=== PATIENT | female | born 1985 | race Caucasian/White ===

== ENCOUNTER 2016-10-31 19:56 | Emergency (ER) | payer SELFPAY ==
[2016-10-31 20:00] VITALS: BP 121/83; PULSE 78; RESP 16; TEMP 98.4; O2SAT 99
[2016-10-31] MEDS ORDERED: HYDR-3533 PO (20:29)
[2016-10-31] MEDS ORDERED: NAPR500 PO (20:29)
[2016-10-31] MEDS ORDERED: CLIN1CAP6 PO (20:29)
--- NOTE | 2016-10-31 20:29 | PD ---
HPI Chief Complaint: Oral / Dental Pain or Problem Time Seen by Provider: 20:18 Travel History International Travel<30 days: No Contact w/Intl Traveler<30days: No Traveled to known affect area: No History of Present Illness HPI This is a 30-year-old woman who presents to the emergency department complaining of right sided facial pain and tenderness. She is a known bad tooth on her right maxilla. She's been having worsening pain and swelling starting just today. She's never had some visible swelling on her face prior to this. She fractured that some time ago. No fevers or chills. Pain is severe. She otherwise has been feeling generally well and healthy. History Past Medical History Medical History: Denies Significant Hx Tetanus Vaccination: > 5 Years Influenza Vaccination: No Menopausal: No : 2 Para: 2 Social History Alcohol Use: No Tobacco Use: Yes (08/27 PPD) Allergies-Medications (Allergen,Severity, Reaction): Coded Allergies: Codeine (Verified Allergy, Severe, hives, 10/31/16) Penicillin (Verified Allergy, Severe, RASH, 10/31/16) Reported Meds & Prescriptions Reported Meds & Active Scripts Active No Active Prescriptions or Reported Medications Review of Systems Except as stated in HPI: all other systems reviewed are Neg Physical Exam Narrative Gen.: Well-appearing 30-year-old woman, no acute distress HEENT: Visible swelling or fullness of the right nasal labial fold. Severe tenderness and tenderness percussion the teeth. She has a fractured bicuspid on the right, tooth #4, no purulence. Data Data Last Documented VS Vital Signs Date Time Temp Pulse Resp B/P Pulse Ox O2 Delivery O2 Flow Rate FiO2 10/31/16 20:00 98.4 78 16 121/83 99 MDM Medical Decision Making Medical Screen Exam Complete: Yes Emergency Medical Condition: Yes Differential Diagnosis Dental pain, infection, abscess, other Narrative Course Medical decision making INITIAL 30-year-old woman presents emergent arm for right sided facial swelling related to dental infection. She's had fullness in the sinuses and onto the sinus infection by think this is probably all odontogenic. Recommend NSAIDs, antibiotics, pain medicine. Diagnosis Primary Impression: Pain, dental Additional Instructions: Take clindamycin as prescribed. Take Naprosyn as needed for pain. Take Lortab in addition to Naprosyn as needed for severe pain. Use caution as it can cause drowsiness and constipation. Do not take this medication and drive. Follow-up with a dentist for further evaluation. Return to the emergency department for any worsening pain, swelling, or any other new or worsening symptoms. Med/Other Pt SpecificInfo: Prescription(s) given Scripts Hydrocodone-Acetaminophen (Lortab)5-325 Mg Tab1-2 Tab PO Q6H PRN (PAIN) #12 TAB Prov:Jarrod Cruz MD 10/31/16 Naproxen (Naprosyn)500 Mg [id number] Mg PO BID PRN (PAIN SCALE 1 TO 10) #20 TAB Prov:Jarrod Cruz MD 10/31/16 Clindamycin 300 Mg [id number] Mg PO Q6H 7 Days Prov:Jarrod Cruz MD 10/31/16 Disposition: 01 DISCHARGE HOME Condition: Stable Jarrod Cruz MD Oct 31, 2016 20:29
[2016-10-31] MEDS ORDERED: KETOROLAC TROMETHAMINE 60 MG/2 ML (IM) VIAL IM ONE (20:30)
[2016-10-31] MEDS ORDERED: DEXAMETHASONE SOD PHOS 4 MG/ML VIAL IM ONE (20:30)
[2016-10-31] MEDS ORDERED: CLINDAMYCIN 150 MG CAP PO ONE (20:30)
== END 2016-10-31 21:05 | disposition home or self-care (01) ==
LOC: PHEFT 19:56
DX: K08.89 Other specified disorders of teeth and supporting structures (principal); K04.7 Periapical abscess without sinus
CPT/HCPCS: 96372; 99282; J1100; J1885

== ENCOUNTER 2016-11-04 12:46 | Emergency (ER) | payer SELFPAY ==
[~2016-11-04] VITALS: Ht 152.4 cm; Wt 67.0 kg
[~2016-11-04 12:46] MED LIST: CLIN1CAP6 PO; HYDR-3533 PO; NAPR500 PO
[2016-11-04 12:55] VITALS: BP 129/79; PULSE 62; RESP 16; TEMP 98.2; O2SAT 100
--- NOTE | 2016-11-04 13:22 | PD ---
HPI . facial swelling Chief Complaint: Oral / Dental Pain or Problem Time Seen by Provider: 13:22 Travel History International Travel<30 days: No Contact w/Intl Traveler<30days: No Traveled to known affect area: No History of Present Illness HPI 30 yr old female who was previously seen on 10/31/16 for dental pain and told to f/u with dentist here with c/o facial swelling and return of pain. She is taking medicines as prescribed and tells me she cannot get into the dental office until Thursday. She is c/o of facial swelling and wants something else for pain. PFSH Past Medical History ADD: Yes Anxiety: Yes Depression: Yes (PP) Cancer: No Cardiovascular Problems: No Diabetes: No Diminished Hearing: No Gastrointestinal Disorders: Yes (Gastritis ) Glaucoma: No Hepatitis: No Hiatal Hernia: Yes Hypertension: No Reproductive: Yes (Heavy periods ) Respiratory: No Immunizations Current: Yes Thyroid Disease: Yes (Hypo-) Tetanus Vaccination: > 5 Years Influenza Vaccination: No ?: Not LMP: 10/20/16 Menopausal: No : 2 Para: 2 Miscarriage: 0 : 0 Ovarian Cysts: Yes (Ovarian and uterine cysts ) Tubal Ligation: Yes Past Surgical History Abdominal Surgery: Yes (Laparoscopy ) Section: Yes (X's 2 ) Cholecystectomy: Yes Gynecologic Surgery: Yes (Uterine scar tissue removal ) Other Surgery: Yes Social History Alcohol Use: Yes (Rarely) Tobacco Use: Yes (3-4 cigarettes/day) Substance Use: No Allergies-Medications (Allergen,Severity, Reaction): Coded Allergies: Codeine (Verified Allergy, Severe, Hives, 11/04/16) Penicillin (Verified Allergy, Severe, Rash, 11/04/16) Reported Meds & Prescriptions Reported Meds & Active Scripts Active Lortab (Hydrocodone-Acetaminophen) 5-325 Mg Tab 1-2 Tab PO Q6H PRN Naprosyn (Naproxen) 500 Mg Tab 500 Mg PO BID PRN Clindamycin (Clindamycin HCl) 300 Mg Cap 300 Mg PO Q6H 7 Days Review of Systems General / Constitutional: No: Fever Eyes: No: Visual changes HENT: Positive: Other (facial pain), No: Headaches Cardiovascular: No: Chest Pain or Discomfort Respiratory: No: Shortness of Breath Gastrointestinal: No: Abdominal Pain Genitourinary: No: Dysuria Musculoskeletal: No: Pain Skin: No Rash Neurologic: No: Weakness Psychiatric: No: Depression Endocrine: No: Polydipsia Hematologic/Lymphatic: No: Easy Bruising Physical Exam Narrative GENERAL: AAO x 3, no acute distress, Well-nourished, well-developed patient. SKIN: Warm and dry. No visible rashes or bruising. HEAD: Normocephalic and atraumatic. EYES: No scleral icterus. No injection or drainage. ENT: No nasal drainage noted. Mucous membranes pink. Airway patent. No definitive oral abscess. No erythema and no edema. There is a bad tooth on the upper jaw. Very minimal swelling near the cheek. NECK: Supple, trachea midline. No JVD. No lymphadenopathy CARDIOVASCULAR: Regular rate and rhythm without murmurs, gallops, or rubs. RESPIRATORY: Breath sounds equal bilaterally. No accessory muscle use. No rhonchi or rales. GASTROINTESTINAL: Abdomen soft, non-tender, nondistended. EXTREMITIES: No cyanosis or edema. BACK: Nontender without obvious deformity. No CVA tenderness. PSYCH: AAO x 3, normal affect. Data Data Last Documented VS Vital Signs Date Time Temp Pulse Resp B/P Pulse Ox O2 Delivery O2 Flow Rate FiO2 11/04/16 12:55 98.2 62 16 129/79 100 Room Air Orders Prednisone (Deltasone) (11/04/16 13:30) MDM Medical Decision Making Medical Screen Exam Complete: Yes Emergency Medical Condition: Yes Medical Record Reviewed: Yes Differential Diagnosis recurrent dental pain, dental caries, less likely oral abscess Narrative Course 30 yr old female who was previously seen on 10/31/16 for dental pain and told to f/u with dentist here with c/o facial swelling and return of pain. She is taking medicines as prescribed and tells me she cannot get into the dental office until Thursday. She is c/o of facial swelling and wants something else for pain. Patient seen and examined. She does not have any oral abscess or worsening infection. Her gumline is actually clear and free of any fluid collect, erythema or drainage. She has very minimal if any edema near her right cheek. I had a discussion with her regarding this and told her that she will need to see dentist for definitive treatment which would be removal of this tooth. She became upset and asked why I can't give her something else for pain even a steroid injection. She says she was given a steroid injection at her last visit and it helped significantly. I explained that there was not any significant findings on exam and that ultimately she needs to see a dentist. She started complaining that she has a hard life and needs something now. I gave oral prednisone. She was content. I advised her to try to move her dental visit up to an earlier date if possible Continue current meds. No changes required. Diagnosis Primary Impression: Pain, dental Patient Instructions: General Instructions Additional Instructions: Please seek dental assistance as soon as possible. This tooth needs to be removed. Continue taking the medicines we prescribed. Med/Other Pt SpecificInfo: No Change to Meds Disposition: 01 DISCHARGE HOME Condition: Stable Aranza Reilly Nov 04, 2016 13:22
[2016-11-04] MEDS ORDERED: predniSONE 50 MG TAB PO ONE (13:30)
== END 2016-11-04 13:50 | disposition home or self-care (01) ==
LOC: PHEFT 12:46
DX: K08.89 Other specified disorders of teeth and supporting structures (principal); E07.9 Disorder of thyroid, unspecified; F17.210 Nicotine dependence, cigarettes, uncomplicated
CPT/HCPCS: 99282; J7512

== ENCOUNTER 2017-03-10 10:20 | Observation (INO) | payer SELFPAY ==
[~2017-03-10] VITALS: Ht 175.3 cm; Wt 68.8 kg
[2017-03-10 10:26] VITALS: BP 118/79; PULSE 59; RESP 16; TEMP 98.3; O2SAT 100
[2017-03-10] MEDS ORDERED: KETOROLAC TROMETHAMINE 30 MG/ML (IVP) VIAL IV PUSH ONE (11:00)
[2017-03-10] MEDS ORDERED: SODIUM CHLOR 0.9% 1000 ML INJ 1,000 ML IV ONE (11:00)
[2017-03-10] MEDS ORDERED: ONDANSETRON HCL 4 MG/2 ML VIAL IV PUSH ONE (11:00)
[2017-03-10] MEDS ORDERED: MORPHINE SULFATE 8 MG/ML INJ IV PUSH ONE ×3 (11:00→14:00)
--- NOTE | 2017-03-10 11:05 | PD ---
HPI . 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 Onset was midnight. LMP was February 25 for 7 days but she reports that this bleeding is different from her usual menstrual cycles. Reports that the bleeding is bright red and "thin". Reports mid-section soreness as well as right lower quadrant pain that she describes as throbbing. She has had similar episodes in the past associated with the cysts but without vaginal bleeding. Had some mild relief with tylenol. No known aggravating factors. Rates the pain as an 8/10. She denies any fever, chills, vaginal discharge, dysuria, constipation or diarrhea. Reports some nausea this morning, no vomiting. No new sexual partners. Denies any intercourse prior to onset or any trauma. She had a tubal ligation in 2012. PFSH Past Medical History ADD: Yes Anxiety: Yes Depression: Yes (PP) Cancer: No Cardiovascular Problems: No Diabetes: No Diminished Hearing: No Gastrointestinal Disorders: Yes (Gastritis ) Glaucoma: No Hepatitis: No Hiatal Hernia: Yes Hypertension: No Reproductive: Yes (Heavy periods ) Respiratory: No Immunizations Current: Yes Thyroid Disease: Yes (Hypo-) Tetanus Vaccination: Unknown Influenza Vaccination: No ?: Not LMP: 02/25/17 Menopausal: No : 2 Para: 2 Miscarriage: 0 : 0 Ovarian Cysts: Yes (Ovarian and uterine cysts ) Tubal Ligation: Yes Past Surgical History Abdominal Surgery: Yes (Laparoscopy ) Section: Yes (X's 2 ) Cholecystectomy: Yes Gynecologic Surgery: Yes (Uterine scar tissue removal ) Other Surgery: Yes Social History Alcohol Use: Yes (Rarely) Tobacco Use: No Substance Use: No Allergies-Medications (Allergen,Severity, Reaction): Coded Allergies: Codeine (Verified Allergy, Severe, Hives, 03/10/17) Penicillin (Verified Allergy, Severe, Rash, 03/10/17) Uncoded Allergies: " all cillins" (Allergy, Mild, hives, 03/10/17) Reported Meds & Prescriptions Reported Meds & Active Scripts Active No Active Prescriptions or Reported Medications Review of Systems Except as stated in HPI: all other systems reviewed are Neg General / Constitutional: No: Fever, Chills Respiratory: No: Shortness of Breath, Wheezing Gastrointestinal: Positive: Nausea, Abdominal Pain Genitourinary: Positive: Vaginal Bleeding, No: Frequency, Dysuria, Discharge Physical Exam Narrative GENERAL: Awake and alert female appearing stated age in no acute distress. SKIN: Focused skin assessment warm/dry. HEAD: Atraumatic. Normocephalic. EYES: Pupils equal and round. No scleral icterus. No injection or drainage. Extraocular eye movements intact. ENT: No nasal bleeding or discharge. Mucous membranes pink and moist. NECK: Trachea midline. Neck supple. CARDIOVASCULAR: Regular rate and rhythm. No murmur appreciated. RESPIRATORY: No accessory muscle use. Clear to auscultation. Breath sounds equal bilaterally. GASTROINTESTINAL: Abdomen soft, non-tender, nondistended. Tenderness elicited in the right lower quadrant. No rebound or guarding. MUSCULOSKELETAL: No obvious deformities. No clubbing. No cyanosis. No edema. NEUROLOGICAL: Awake and alert. No obvious cranial nerve deficits. Motor grossly within normal limits. Normal speech. PSYCHIATRIC: Appropriate mood and affect; insight and judgment normal. Data Data Last Documented VS Vital Signs Date Time Temp Pulse Resp B/P Pulse Ox O2 Delivery O2 Flow Rate FiO2 03/10/17 13:48 59 16 122/66 100 Room Air 03/10/17 10:26 98.3 Orders Complete Blood Count With Diff (03/10/17 10:51) Ed Urine Pregnancytest Poc (03/10/17 10:51) Morphine Inj (Morphine Inj) (03/10/17 11:00) Ketorolac Inj (Toradol Inj) (03/10/17 11:00) Ondansetron Inj (Zofran Inj) (03/10/17 11:00) Sodium Chlor 0.9% 1000 Ml Inj (Ns 1000 M (03/10/17 11:00) Beta Hcg (Quant/Titer) (03/10/17 11:09) Type And Screen (03/10/17 11:09) Urinalysis - C+S If Indicated (03/10/17 11:09) Basic Metabolic Panel (Bmp) (03/10/17 11:09) Us Pelvis (Ques Pr/Ect)W Trans (03/10/17 ) Morphine Inj (Morphine Inj) (03/10/17 12:15) Morphine Inj (Morphine Inj) (03/10/17 14:00) Admit Order (Ed Use Only) (03/10/17 14:37) Red Blood Cells (Rbc) (03/10/17 14:42) Bupivacaine-Epi Pf 0.25% Inj (Marcaine-E (03/10/17 15:07) Place In Observation (03/10/17 ) Scd / Nadeem / Foot Pump REECE.QSHIFT (03/10/17 15:08) Clindamycin Inj (Cleocin Inj) (03/10/17 15:15) Labs Laboratory Tests Test 03/10/17 03/10/17 11:00 11:24 White Blood Count 3.3 TH/MM3 Red Blood Count 4.51 MIL/MM3 Hemoglobin 12.6 GM/DL Hematocrit 37.2 % Mean Corpuscular Volume 82.6 FL Mean Corpuscular Hemoglobin 27.8 PG Mean Corpuscular Hemoglobin 33.7 % Concent Red Cell Distribution Width 13.9 % Platelet Count 237 TH/MM3 Mean Platelet Volume 8.6 FL Neutrophils (%) (Auto) 42.5 % Lymphocytes (%) (Auto) 37.0 % Monocytes (%) (Auto) 16.5 % Eosinophils (%) (Auto) 2.2 % Basophils (%) (Auto) 1.8 % Neutrophils # (Auto) 1.4 TH/MM3 Lymphocytes # (Auto) 1.2 TH/MM3 Monocytes # (Auto) 0.5 TH/MM3 Eosinophils # (Auto) 0.1 TH/MM3 Basophils # (Auto) 0.1 TH/MM3 CBC Comment DIFF FINAL Differential Comment Urine Collection Type CLEAN CATCH Urine Color YELLOW Urine Turbidity SLIGHT Urine pH 5.5 Urine Specific [place] 1.026 Urine Protein TRACE mg/dL Urine Glucose (UA) NEG mg/dL Urine Ketones NEG mg/dL Urine Occult Blood LARGE Urine Nitrite NEG Urine Bilirubin NEG Urine Leukocyte Esterase NEG Urine RBC 100-200 /hpf Urine WBC 6-8 /hpf Urine Squamous Epithelial 6-8 /hpf Cells Microscopic Urinalysis Comment CULT NOT INDICATED Urine Collection Time 11:00 Sodium Level 143 MEQ/L Potassium Level 3.8 MEQ/L Chloride Level 109 MEQ/L Carbon Dioxide Level 27.0 MEQ/L Anion Gap 7 MEQ/L Blood Urea Nitrogen 9 MG/DL Creatinine 0.65 MG/DL Estimat Glomerular Filtration 106 ML/MIN Rate Random Glucose 87 MG/DL Calcium Level 8.3 MG/DL Human Chorionic Gonadotropin, 95 MIU/ML Quant Blood Type A POSITIVE Antibody Screen NEGATIVE MDM Medical Decision Making Medical Screen Exam Complete: Yes Emergency Medical Condition: Yes Medical Record Reviewed: Yes Interpretation(s) Laboratory Tests Test 03/10/17 03/10/17 11:00 11:24 White Blood Count 3.3 TH/MM3 Red Blood Count 4.51 MIL/MM3 Hemoglobin 12.6 GM/DL Hematocrit 37.2 % Mean Corpuscular Volume 82.6 FL Mean Corpuscular Hemoglobin 27.8 PG Mean Corpuscular Hemoglobin 33.7 % Concent Red Cell Distribution Width 13.9 % Platelet Count 237 TH/MM3 Mean Platelet Volume 8.6 FL Neutrophils (%) (Auto) 42.5 % Lymphocytes (%) (Auto) 37.0 % Monocytes (%) (Auto) 16.5 % Eosinophils (%) (Auto) 2.2 % Basophils (%) (Auto) 1.8 % Neutrophils # (Auto) 1.4 TH/MM3 Lymphocytes # (Auto) 1.2 TH/MM3 Monocytes # (Auto) 0.5 TH/MM3 Eosinophils # (Auto) 0.1 TH/MM3 Basophils # (Auto) 0.1 TH/MM3 CBC Comment DIFF FINAL Differential Comment Urine Collection Type CLEAN CATCH Urine Color YELLOW Urine Turbidity SLIGHT Urine pH 5.5 Urine Specific [place] 1.026 Urine Protein TRACE mg/dL Urine Glucose (UA) NEG mg/dL Urine Ketones NEG mg/dL Urine Occult Blood LARGE Urine Nitrite NEG Urine Bilirubin NEG Urine Leukocyte Esterase NEG Urine RBC 100-200 /hpf Urine WBC 6-8 /hpf Urine Squamous Epithelial 6-8 /hpf Cells Microscopic Urinalysis Comment CULT NOT INDICATED Urine Collection Time 11:00 Sodium Level 143 MEQ/L Potassium Level 3.8 MEQ/L Chloride Level 109 MEQ/L Carbon Dioxide Level 27.0 MEQ/L Anion Gap 7 MEQ/L Blood Urea Nitrogen 9 MG/DL Creatinine 0.65 MG/DL Estimat Glomerular Filtration 106 ML/MIN Rate Random Glucose 87 MG/DL Calcium Level 8.3 MG/DL Human Chorionic Gonadotropin, 95 MIU/ML Quant Blood Type A POSITIVE Antibody Screen NEGATIVE Ultrasound pelvis reveals no intrauterine seen. Close interval follow -up as an ectopic cannot be excluded. Small pelvic free fluid. Differential Diagnosis Differential diagnosis includes ectopic , ovarian cyst, hemorrhagic ovarian cyst, PID, cervicitis, dysfunctional uterine bleeding, dysmenorrhea, atypical appendicitis, pyelonephritis, hydronephrosis, nephrolithiasis. Narrative Course IV was established, labs are drawn and sent, and the patient was placed on cardiac telemetry monitoring and continuous pulse oximetry monitoring. Bedside UA test was obtained, was positive. Therefore, formal quantitative beta hCG was ordered and formal ultrasound was ordered to evaluate for ectopic . The patient was administered morphine, Zofran, and IV fluids. A pelvic examination was performed in the presence of a female nurse. Beta hCG was 95. Pelvic examination reveals significant right adnexal tenderness. Ultrasound reveals no IUP, small pelvic free fluid, recommends close interval follow-up. The patient required 3 different doses of morphine for pain control , with history of tubal ligation I suspect ectopic . Therefore, Dr. Geiger, the on-call insurance special agent was paged at 1:52 PM. I discussed the patient with Dr. Geiger, after discussion was agreed the patient would go to the operating room for diagnostic laparoscopy to evaluate for possible ectopic . Physician Communication Physician Communication I discussed the patient with Dr. Geiger who will take the patient to the operating room for diagnostic laparoscopy. Diagnosis Primary Impression: Vaginal bleeding Additional Impression: Ectopic Qualified Code: O00.90 - Ectopic , unspecified location, unspecified whether intrauterine present Scripts No Active Prescriptions or Reported Meds Condition: Deondre Melendez MD Mar 10, 2017 11:05
[2017-03-10 11:34] LABS: BLOOD, URINE LARGE (NEG); GLUCOSE,URINE NEG (NEG); KETONE, URINE NEG (NEG); NITRITE,URINE NEG (NEG); PH, URINE 5.5 (5.0-8.5)
[2017-03-10 11:36] LABS: AUTOMATED NEUTROPHIL # 1.4 TH/MM3 (1.8-7.7); BASOPHIL # 0.1 TH/MM3 (0-0.2); BASOPHIL % 1.8 % (0.0-2.0); EOSINOPHIL # 0.1 TH/MM3 (0-0.4); EOSINOPHIL % 2.2 % (0.0-4.0); HEMATOCRIT 37.2 % (35.0-46.0); HEMO FLAGS DIFF FINAL; LYMPHOCYTE # 1.2 TH/MM3 (1.0-4.8); MEAN CELL VOLUME 82.6 FL (80.0-100.0); MEAN CORPUSCULAR HEMOGLOBIN 27.8 PG (27.0-34.0); MEAN CORPUSCULAR HGB CONC 33.7 % (32.0-36.0); MONO % 16.5 % (0.0-8.0); NEUT % 42.5 % (16.0-70.0); PLATELET COUNT 237 TH/MM3 (150-450); RED BLOOD COUNT 4.51 MIL/MM3 (4.00-5.30); RED CELL DISTRIBUTION WIDTH 13.9 % (11.6-17.2); WHITE BLOOD COUNT 3.3 TH/MM3 (4.0-11.0)
[2017-03-10 11:43] LABS: METHOD OF COLLECTION CLEAN CATCH; URINE COLOR YELLOW (YELLW/STRAW)
[2017-03-10 11:44] LABS: POTASSIUM 3.8 MEQ/L (3.5-5.1)
[2017-03-10 11:45] LABS: COMMENT (UR) CULT NOT INDICATED; CULTURE IF INDICATED CULT NOT INDICATED; RBC, URINE 100-200 /hpf (0-3)
[2017-03-10] MEDS ORDERED: PROPOFOL 200 MG/20 ML AMP IV ONE (12:00)
[2017-03-10] MEDS ORDERED: NEOSTIGMINE 3 MG/3 ML SYR IV ONE (12:00)
--- NOTE | 2017-03-10 13:46 | RADRPT ---
EXAM DATE/TIME: 03/10/2017 12:29 [facility] COMPARISON: No previous studies available for comparison. INDICATIONS : Pelvic pain and bleeding. LAB(S): Beta-hC MEDICAL HISTORY : Hypothyroidism. Ovarian cysts. Gastritis. SURGICAL HISTORY : Cholecystectomy. Tubal ligation. section. ENCOUNTER: ACUITY: 1 day PAIN SCORE: 6/10 LOCATION: Bilateral pelvis MEASUREMENTS: UTERUS: 8.6 x 6.2 x 4.1 cm ENDOMETRIAL STRIPE: 4 mm RIGHT OVARY: 3.2 x 3.4 x 2.2 cm LEFT OVARY: 2.7 x 1.9 x 2.3 cm FREE FLUID: Yes CROWN RUMP LENGTH: not seen = WKS DAYS FHR: not seen BPM FINDINGS: UTERUS: The myometrium has homogeneous echotexture without mass. No gestational sac. Ectopic not seen. RIGHT OVARY: Ovary contains no mass or significant cystic lesion. LEFT OVARY: Ovary contains no mass or significant cystic lesion. MISCELLANEOUS: Small amount of free fluid. CONCLUSION: 1. No intrauterine seen. 2. Close interval followup as ectopic can not be excluded. 3. Small pelvic free fluid. Clark Prince MD on March 10, 2017 at 13:43 Board Certified Radiologist. This report was verified electronically.
[2017-03-10 13:48] VITALS: BP 122/66; PULSE 59; RESP 16; O2SAT 100
[2017-03-10] MEDS ORDERED: BUPIVACAINE/EPINEPHRINE 0.25% PF 30 ML VIAL ONE (15:07)
[2017-03-10] MEDS ORDERED: fentaNYL CITRATE 250 MCG/5 ML AMP ONE (15:11)
[2017-03-10] MEDS ORDERED: ONDANSETRON HCL 4 MG/2 ML VIAL IV PUSH PRN (15:15)
[2017-03-10] MEDS ORDERED: oxyCODONE/ACETAMINOPHEN 10 MG/325 MG TAB PO PRN (15:15)
[2017-03-10] MEDS ORDERED: oxyCODONE/ACETAMINOPHEN 5 MG/325 MG TAB PO PRN (15:15)
[2017-03-10] MEDS ORDERED: CLINDAMYCIN INJ 600 MG in SODIUM CHLORIDE 0.9% INJ 100 ML IV SCH (15:15)
[2017-03-10] MEDS ORDERED: PERC5TAB12 PO (15:16)
[2017-03-10] MEDS ORDERED: OXYC1TAB63 PO (15:16)
[2017-03-10] MEDS ORDERED: CLINDAMYCIN PHOS 600 MG/4 ML VIAL ONE (15:21)
--- NOTE | 2017-03-10 15:34 | HHI.HP ---
HPI Chief Complaint pt c/o RLQ pain that started at midnight and has worsened over the course of the day today and vaginal bleeding. Date Seen: Mar 10, 2017 Time Seen: 03:20 Travel History International Travel<30 Days: No Contact w/Intl Traveler<30Days: No Known Affected Area: No History of Present Illness HPI 31 yo presents with RLQ pain that started last night and has worsened. she had a normal cycle on 02/28/17 and then when the pain started last night she had bright red "thin" bleeding. the pain has increased since then. +nausea, no vomiting. hx of PPTL in 2012. History Past Medical History Narrative Medical anxiety add pp depression Obstetric History Obstetric History para 2 Past Surgical History Narrative Surgical X 2 lap cholecystectomy laparoscopy Family History Family History: Negative Social History Alcohol Use: No Tobacco Use: No Substance Abuse: No Allergies-Medications (Allergen,Severity, Reaction): Coded Allergies: Codeine (Verified Allergy, Severe, Hives, 03/10/17) Penicillin (Verified Allergy, Severe, Rash, 03/10/17) Uncoded Allergies: " all cillins" (Allergy, Mild, hives, 03/10/17) Home Meds Active Scripts Oxycodone-Acetaminophen (Percocet)5-325 mg Tab1 Tab PO Q6H PRN (PAIN) #30 TAB Ref 0 Prov:Myles Geiger MD 03/10/17 Oxycodone-Acetaminophen 5-325 mg Tab1 Tab PO UNSCH X1 PRN (PAIN SCALE 1 TO 5) # 30 TAB Prov:Myles Geiger MD 03/10/17 Discontinued Scripts Hydrocodone-Acetaminophen (Lortab)5-325 Mg Tab1-2 Tab PO Q6H PRN (PAIN) #12 TAB Prov:Jarrod Cruz MD 10/31/16 Naproxen (Naprosyn)500 Mg [id number] Mg PO BID PRN (PAIN SCALE 1 TO 10) #20 TAB Prov:Jarrod Cruz MD 10/31/16 Clindamycin 300 Mg [id number] Mg PO Q6H 7 Days Prov:Jarrod Cruz MD 10/31/16 Review of Systems Except as stated in HPI: all other systems reviewed are Neg Physical Exam Vital Signs Date Time Temp Pulse Resp B/P Pulse Ox O2 Delivery O2 Flow Rate FiO2 03/10/17 13:48 59 16 122/66 100 Room Air 03/10/17 12:38 16 03/10/17 12:08 16 03/10/17 10:26 98.3 59 16 118/79 100 Narrative GENERAL: Well-nourished, well-developed patient. SKIN: Warm and dry. HEAD: Normocephalic and atraumatic. EYES: No scleral icterus. No injection or drainage. ENT: No nasal drainage noted. Mucous membranes pink. Airway patent. NECK: Supple, trachea midline. No JVD. CARDIOVASCULAR: Regular rate and rhythm without murmurs, gallops, or rubs. RESPIRATORY: Breath sounds equal bilaterally. No accessory muscle use. BREASTS: Bilateral exam showed no masses , no retractions, no nipple discharge. ABDOMEN/GI: Abdomen soft, RLQ tenderness, bowel sounds present, no rebound, no guarding EXTREMITIES: No cyanosis or edema. BACK: Nontender without obvious deformity. No CVA tenderness. NEUROLOGICAL: Awake and alert. Motor and sensory grossly within normal limits. Five out of 5 muscle strength in all muscle groups. Normal speech. Data Data Vital Signs Reviewed: Yes Orders Complete Blood Count With Diff (03/10/17 10:51) Ed Urine Pregnancytest Poc (03/10/17 10:51) Morphine Inj (Morphine Inj) (03/10/17 11:00) Ketorolac Inj (Toradol Inj) (03/10/17 11:00) Ondansetron Inj (Zofran Inj) (03/10/17 11:00) Sodium Chlor 0.9% 1000 Ml Inj (Ns 1000 M (03/10/17 11:00) Beta Hcg (Quant/Titer) (03/10/17 11:09) Type And Screen (03/10/17 11:09) Urinalysis - C+S If Indicated (03/10/17 11:09) Basic Metabolic Panel (Bmp) (03/10/17 11:09) Us Pelvis (Ques Pr/Ect)W Trans (03/10/17 ) Morphine Inj (Morphine Inj) (03/10/17 12:15) Morphine Inj (Morphine Inj) (03/10/17 14:00) Admit Order (Ed Use Only) (03/10/17 14:37) Red Blood Cells (Rbc) (03/10/17 14:42) Bupivacaine-Epi Pf 0.25% Inj (Marcaine-E (03/10/17 15:07) Place In Observation (03/10/17 ) Scd / Nadeem / Foot Pump REECE.QSHIFT (03/10/17 15:08) Clindamycin Inj (Cleocin Inj) (03/10/17 15:15) Fentanyl Inj (Fentanyl Inj) (03/10/17 15:11) Vital Signs (Adult) REECE.Q4H (03/10/17 15:11) Discontinue Iv (03/10/17 15:11) Diet Regular Basic (03/10/17 Dinner) ^ Discharge Disposition (03/10/17 15:11) Vital Signs (Adult) Q15MX4,Q30MX2 (03/10/17 15:11) ^ IV (03/10/17 15:11) ^ Discharge Plan (03/10/17 15:11) Ondansetron Inj (Zofran Inj) (03/10/17 15:15) Oxycodone-Acetamin 5-325 Mg (Percocet (03/10/17 15:15) Oxycodone-Acetamin 10-325 Mg (Percocet 1 (03/10/17 15:15) Attending Discharge Order (03/10/17 ) Clindamycin Inj (Cleocin Inj) (03/10/17 15:21) Labs Laboratory Tests Test 03/10/17 03/10/17 11:00 11:24 White Blood Count 3.3 Red Blood Count 4.51 Hemoglobin 12.6 Hematocrit 37.2 Mean Corpuscular Volume 82.6 Mean Corpuscular Hemoglobin 27.8 Mean Corpuscular Hemoglobin 33.7 Concent Red Cell Distribution Width 13.9 Platelet Count 237 Mean Platelet Volume 8.6 Neutrophils (%) (Auto) 42.5 Lymphocytes (%) (Auto) 37.0 Monocytes (%) (Auto) 16.5 Eosinophils (%) (Auto) 2.2 Basophils (%) (Auto) 1.8 Neutrophils # (Auto) 1.4 Lymphocytes # (Auto) 1.2 Monocytes # (Auto) 0.5 Eosinophils # (Auto) 0.1 Basophils # (Auto) 0.1 CBC Comment DIFF FINAL Differential Comment Urine Collection Type CLEAN CATCH Urine Color YELLOW Urine Turbidity SLIGHT Urine pH 5.5 Urine Specific [place] 1.026 Urine Protein TRACE Urine Glucose (UA) NEG Urine Ketones NEG Urine Occult Blood LARGE Urine Nitrite NEG Urine Bilirubin NEG Urine Leukocyte Esterase NEG Urine RBC 100-200 Urine WBC 6-8 Urine Squamous Epithelial 6-8 Cells Microscopic Urinalysis Comment CULT NOT INDICATED Urine Collection Time 11:00 Sodium Level 143 Potassium Level 3.8 Chloride Level 109 Carbon Dioxide Level 27.0 Anion Gap 7 Blood Urea Nitrogen 9 Creatinine 0.65 Estimat Glomerular Filtration 106 Rate Random Glucose 87 Calcium Level 8.3 Human Chorionic Gonadotropin, 95 Quant Blood Type A POSITIVE Antibody Screen NEGATIVE Crossmatch Leukocyte-Reduced Red Blood Cells Blood Bank Comment Assessment/Plan Problem List: (1) Ectopic Plan: will plan scope b/l salpingectomy (2) RLQ abdominal pain Plan: plan scope b/l salpingectomies r/b/alt reviewed. will proceed. Myles Geiger MD Mar 10, 2017 15:33
[2017-03-10 18:20] VITALS: BP 121/69; PULSE 52; RESP 16; TEMP 98.5; O2SAT 100
--- NOTE | 2017-03-11 08:21 | MP ---
cc: MYLES URIARTE DATE OF SURGERY: 03/10/2017 PREOPERATIVE DIAGNOSIS Right ectopic . POSTOPERATIVE DIAGNOSIS Right ectopic . PROCEDURE Laparoscopic bilateral salpingectomies. SURGEON Myles Uriarte. ANESTHESIA General with local. ESTIMATED BLOOD LOSS Minimal. DRAINS Butler catheter. DISPOSITION Stable in the PACU. INDICATION The patient is a 31-year-old 3, para 2, who presents with right-sided abdominal pain and also vaginal bleeding. The patient had a prior tubal ligation in 2012 and has positive qualitative hCG. Ultrasound shows no IUP and free fluid noted on the ultrasound suspicious for ectopic . DETAILS OF PROCEDURE After informed consent was obtained the patient was taken to the operating room and prepped and draped in a normal sterile fashion for surgery. A speculum was inserted into the vagina along with ring forceps to provide a means of uterine manipulation. Gloves were changed and attention turned to the abdominal portion of the case. A 5 mm skin incision was made and a 5 mm trocar inserted without difficulty. Two additional trocars were inserted after being injected with local, one in the left lower quadrant, one in the right lower quadrant. The right lower quadrant was a 10 mm trocar. These were all inserted under direct visualization. Pneumoperitoneum was obtained. The patient has a normal liver edge. A large right ectopic was noted with some evidence of rupture as blood was encountered in the abdomen as well. The patient's left fallopian tube and ovary were grossly normal. The left fallopian tube did show evidence of prior tubal ligation. The uterus appeared grossly within normal limits. There was some scarring along the vesicouterine peritoneum from her prior . The Harmonic scalpel was inserted and the mesosalpinx was cauterized and divided using the Harmonic scalpel on the right side amputating the right fallopian tube completely. Next, the same procedure was carried out on the patient's left side. Once the fallopian tubes were completely amputated the EndoCatch bag was inserted and the fallopian tubes were removed through the 10 mm trocar site. The pelvis was then copiously irrigated. There was noted to be a small amount of bleeding coming from the right pelvic side wall along the mesosalpinx. This was made hemostatic using the Harmonic scalpel. Once this was done the pelvis was then again copiously irrigated. No further bleeding was noted. The abdomen was deflated. The fascia site at the 10 mm trocar was closed using 2-0 Vicryl suture in an interrupted fashion. The skin was closed using 4-0 Monocryl suture in a subcuticular fashion. Band-Aids and Steri-Strips were placed. All instruments were removed from the patient's vagina along with her Butler catheter. The patient was then awakened and extubated and taken to the recovery room in stable condition. Myles Uriarte MD TEG/BT /10:26 PM /8:07 AM
== END 2017-03-10 15:15 | disposition home or self-care (01) ==
LOC: PHED 10:20 → HSDI 15:10 → PHSDC 15:15 → UNDOADMOB 15:21 → HSDI 15:21
PROVIDERS: ADMIT Obstetrics & Gynecology; ATTEND Obstetrics & Gynecology
DX: O00.90 Unspecified ectopic pregnancy without intrauterine pregnancy (principal); E03.9 Hypothyroidism, unspecified; K29.70 Gastritis, unspecified, without bleeding
CPT/HCPCS: 00840; 59151; 76700; 76817; 80048; 81001; 84702; 84703; 85025; 86850; 86900; 86901; 86920; 88305; 96365; 96375; 96376; 99285; G0378; J2270; J2405; J2710; J3010; J7030; 88302

== ENCOUNTER 2017-10-20 17:32 | Emergency (ER) | payer MEDICAID ==
[~2017-10-20] VITALS: Ht 152.4 cm; Wt 70.6 kg
[~2017-10-20 17:32] MED LIST changes: -CLIN1CAP6 PO; -HYDR-3533 PO; -NAPR500 PO; +OXYC1TAB63 PO; +PERC5TAB12 PO
[2017-10-20 17:41] VITALS: BP 136/69; PULSE 74; RESP 18; TEMP 98.4; O2SAT 100
--- NOTE | 2017-10-20 18:07 | PD ---
HPI Chief Complaint: Lactation Nurse Problem/Complaint Time Seen by Provider: 17:55 Travel History International Travel<30 days: No Contact w/Intl Traveler<30days: No Traveled to known affect area: No History of Present Illness HPI 31 y/o female presents with bilateral lower abdominal pain over her ovaries for the past couple of days. She states her last menstrual cycle was 5 days ago. She states she had history of ectopic and they removed both of her tubes. She states she also has history of ovarian cyst. She states that she will feel like she is going to have her menstrual cycle 2 weeks early where she will have symptoms of bloating and feeling like she is about to start but then she does not bleed until she is supposed to. She denies other specific complaints at this time. Quality is crampy. Severity is moderate. PFSH Past Medical History ADD: Yes Anxiety: Yes Depression: Yes (PP) Cancer: No Cardiovascular Problems: No Diabetes: No Diminished Hearing: No Gastrointestinal Disorders: Yes (Gastritis ) Glaucoma: No Hepatitis: No Hiatal Hernia: Yes Hypertension: No Reproductive: Yes (Heavy periods ) Respiratory: No Immunizations Current: Yes Thyroid Disease: Yes (Hypo-) Tetanus Vaccination: Unknown Influenza Vaccination: No ?: Not Menopausal: No : 2 Para: 2 Miscarriage: 0 : 0 Ovarian Cysts: Yes (Ovarian and uterine cysts ) Tubal Ligation: Yes Past Surgical History Abdominal Surgery: Yes (Laparoscopy ) Section: Yes (X's 2 ) Cholecystectomy: Yes Gynecologic Surgery: Yes (Uterine scar tissue removal ) Other Surgery: Yes Social History Alcohol Use: No Tobacco Use: No Substance Use: No Allergies-Medications (Allergen,Severity, Reaction): Coded Allergies: codeine (Unverified Allergy, Severe, Hives, 10/20/17) penicillin G (Unverified Allergy, Severe, Rash, 10/20/17) Uncoded Allergies: " all cillins" (Allergy, Mild, hives, 03/10/17) Reported Meds & Prescriptions Reported Meds & Active Scripts Active Prochlorperazine Maleate 10 Mg Tab 10 Mg PO Q6H PRN Percocet (Oxycodone-Acetaminophen) 5-325 mg Tab 1 Tab PO Q6H PRN Review of Systems Except as stated in HPI: all other systems reviewed are Neg Physical Exam Narrative GENERAL: 31-year-old female in no apparent distress SKIN: Focused skin assessment warm/dry. HEAD: Atraumatic. Normocephalic. EYES: Pupils equal and round. No scleral icterus. No injection or drainage. ENT: No nasal bleeding or discharge. Mucous membranes pink and moist. NECK: Trachea midline. No JVD. CARDIOVASCULAR: Regular rate and rhythm. RESPIRATORY: No accessory muscle use. No increased effort GASTROINTESTINAL: Abdomen soft, non-tender, nondistended. MUSCULOSKELETAL: No obvious deformities. No clubbing. No cyanosis. No edema. NEUROLOGICAL: Awake and alert. No obvious cranial nerve deficits. Motor grossly within normal limits. Normal speech. PSYCHIATRIC: Appropriate mood and affect; insight and judgment normal. Data Data Last Documented VS Vital Signs Date Time Temp Pulse Resp B/P (MAP) Pulse Ox O2 Delivery O2 Flow Rate FiO2 10/20/17 20:21 78 26 127/64 (85) 100 10/20/17 17:41 98.4 Orders Orders Complete Blood Count With Diff (10/20/17 17:55) Comprehensive Metabolic Panel (10/20/17 17:55) Urinalysis - C+S If Indicated (10/20/17 17:55) Lipase (10/20/17 17:55) Iv Access Insert/Monitor (10/20/17 17:55) Ed Urine Pregnancytest Poc (10/20/17 17:55) Us Pelvis Comp W Doppler (10/20/17 ) Oxycodone-Acetamin 7.5-325 Mg (Percocet (10/20/17 20:00) Ondansetron Inj (Zofran Inj) (10/20/17 20:00) Ed Discharge Order (10/20/17 19:55) Labs Laboratory Tests Test 10/20/17 18:00 10/20/17 18:18 Urine Color YELLOW Urine Turbidity CLEAR Urine pH 6.0 Urine Specific [place] 1.025 Urine Protein NEG mg/dL Urine Glucose (UA) NEG mg/dL Urine Ketones NEG mg/dL Urine Occult Blood NEG Urine Nitrite NEG Urine Bilirubin NEG Urine Leukocyte Esterase NEG Urine RBC 0-3 /hpf Urine WBC 0-2 /hpf Urine Squamous Epithelial Cells 0-5 /hpf Microscopic Urinalysis Comment CULT NOT INDICATED White Blood Count 8.4 TH/MM3 Red Blood Count 4.59 MIL/MM3 Hemoglobin 12.7 GM/DL Hematocrit 38.8 % Mean Corpuscular Volume 84.6 FL Mean Corpuscular Hemoglobin 27.8 PG Mean Corpuscular Hemoglobin Concent 32.8 % Red Cell Distribution Width 13.4 % Platelet Count 305 TH/MM3 Mean Platelet Volume 8.4 FL Neutrophils (%) (Auto) 69.7 % Lymphocytes (%) (Auto) 21.5 % Monocytes (%) (Auto) 4.6 % Eosinophils (%) (Auto) 2.7 % Basophils (%) (Auto) 1.5 % Neutrophils # (Auto) 5.9 TH/MM3 Lymphocytes # (Auto) 1.8 TH/MM3 Monocytes # (Auto) 0.4 TH/MM3 Eosinophils # (Auto) 0.2 TH/MM3 Basophils # (Auto) 0.1 TH/MM3 CBC Comment DIFF FINAL Differential Comment Blood Urea Nitrogen 8 MG/DL Creatinine 0.75 MG/DL Random Glucose 93 MG/DL Total Protein 7.9 GM/DL Albumin 3.8 GM/DL Calcium Level 8.4 MG/DL Alkaline Phosphatase 36 U/L Aspartate Amino Transf (AST/SGOT) 11 U/L Alanine Aminotransferase (ALT/SGPT) 15 U/L Total Bilirubin 0.2 MG/DL Sodium Level 141 MEQ/L Potassium Level 3.2 MEQ/L Chloride Level 107 MEQ/L Carbon Dioxide Level 25.6 MEQ/L Anion Gap 8 MEQ/L Estimat Glomerular Filtration Rate 90 ML/MIN Lipase 138 U/L MDM Medical Decision Making Medical Screen Exam Complete: Yes Emergency Medical Condition: Yes Medical Record Reviewed: Yes (past history confirmed) Interpretation(s) CBC & BMP Diagram 10/20/17 18:18 Total Protein 7.9, Albumin 3.8, Calcium Level 8.4 L, Alkaline Phosphatase 36 L, Aspartate Amino Transf (AST/SGOT) 11 L, Alanine Aminotransferase (ALT/SGPT) 15, Total Bilirubin 0.2 Differential Diagnosis cyst, ectopic, stone, uti... Narrative Course will check labs, ua, beta and pelvic ultrasound and reevaluate Physician Communication Physician Communication oncoming physician to follow ultrasound and reevaluate Scripts Prochlorperazine Maleate (Prochlorperazine Maleate) 10 Mg Tab 10 MG PO Q6H Y for NAUSEA OR VOMITING, #30 TAB 0 Refills Prov: Davy Alicia MD 10/20/17 Oxycodone-Acetaminophen (Percocet) 5-325 mg Tab 1 TAB PO Q6H Y for PAIN, #21 TAB 0 Refills Prov: Davy Alicia MD 10/20/17 Tosha Batres MD Oct 20, 2017 18:06
[2017-10-20 18:23] LABS: AUTOMATED NEUTROPHIL # 5.9 TH/MM3 (1.8-7.7); BASOPHIL # 0.1 TH/MM3 (0-0.2); BASOPHIL % 1.5 % (0.0-2.0); EOSINOPHIL # 0.2 TH/MM3 (0-0.4); EOSINOPHIL % 2.7 % (0.0-4.0); HEMATOCRIT 38.8 % (35.0-46.0); HEMOGLOBIN 12.7 GM/DL (11.6-15.3); LYMPH % 21.5 % (9.0-44.0); LYMPHOCYTE # 1.8 TH/MM3 (1.0-4.8); MEAN CELL VOLUME 84.6 FL (80.0-100.0); MEAN CORPUSCULAR HEMOGLOBIN 27.8 PG (27.0-34.0); MEAN CORPUSCULAR HGB CONC 32.8 % (32.0-36.0); MEAN PLATELET VOLUME 8.4 FL (7.0-11.0); MONO % 4.6 % (0.0-8.0); MONOCYTE # 0.4 TH/MM3 (0-0.9); NEUT % 69.7 % (16.0-70.0); PLATELET COUNT 305 TH/MM3 (150-450); RED BLOOD COUNT 4.59 MIL/MM3 (4.00-5.30); RED CELL DISTRIBUTION WIDTH 13.4 % (11.6-17.2); WHITE BLOOD COUNT 8.4 TH/MM3 (4.0-11.0)
[2017-10-20 18:25] LABS: BILIRUBIN, URINE NEG (NEG); BLOOD, URINE NEG (NEG); GLUCOSE,URINE NEG (NEG); KETONE, URINE NEG (NEG); NITRITE,URINE NEG (NEG); URINE LEUKOCYTE ESTERASE NEG (NEG)
[2017-10-20 18:31] LABS: RBC, URINE 0-3 /hpf (0-3); SQUAMOUS EPITHELIAL CELL URINE 0-5 /hpf (0-5); URINE COLOR YELLOW (YELLW/STRAW); WBC, URINE 0-2 /hpf (0-5)
[2017-10-20 18:32] LABS: CHLORIDE 107 MEQ/L (98-107); SODIUM (NA) 141 MEQ/L (136-145)
[2017-10-20 18:35] LABS: CALCIUM 8.4 MG/DL (8.5-10.1)
[2017-10-20 18:36] LABS: ALBUMIN 3.8 GM/DL (3.4-5.0); BICARBONATE 25.6 MEQ/L (21.0-32.0); BLOOD UREA NITROGEN 8 MG/DL (7-18); GLUCOSE,RANDOM 93 MG/DL (74-106)
[2017-10-20 18:38] LABS: ALT (GPT) 15 U/L (10-53)
[2017-10-20 18:39] LABS: AST (GOT) 11 U/L (15-37); CREATININE 0.75 MG/DL (0.50-1.00); GLOMERULAR FILTRATION RATE 90 ML/MIN (>89)
[2017-10-20 18:40] LABS: TOTAL BILIRUBIN ADULT 0.2 MG/DL (0.2-1.0); TOTAL PROTEIN 7.9 GM/DL (6.4-8.2)
[2017-10-20 18:41] LABS: ALKALINE PHOSPHATASE 36 U/L (45-117)
--- NOTE | 2017-10-20 19:18 | RADRPT ---
EXAM DATE/TIME: 10/20/2017 18:45 [facility] COMPARISON: US PELVIS,COMP,W DOPPLER, January 26, 2016, 9:23. INDICATIONS : Pelvic pain. MEDICAL HISTORY : . Hypothyroidism. Gastroesophageal reflux disease. Ectopic . Ovarian cyst. Gastriti s. ADD. PTSD. Depression. Anxiety. SURGICAL HISTORY : Tubal ligation. section. Cholecystectomy. Bilateral salpingectomy. Exploratory laparotomy wi th scar tissue removal. ENCOUNTER: Subsequent ACUITY: 2 days PAIN SCORE: 8/10 LOCATION: Bilateral pelvis MEASUREMENTS: UTERUS: 8.0 x 6.7 x 5.0 cm ENDOMETRIAL STRIPE: 7 mm RIGHT OVARY: 2.8 x 2.0 x 1.7 cm LEFT OVARY: 3.5 x 3.2 x 2.6 cm FINDINGS: Ultrasound pelvis and uterus are normal size, shape and echogenicity without focal lesion. No free fl uid or adnexal masses are seen. Normal Doppler flow is present bilaterally. Examination of right ovary demonstrates normal size, shape and echogenicity. Examination of the left ovary demonstrates normal size shape and echogenicity. CONCLUSION: 1. Unremarkable ultrasound examination of the pelvis. Zach Mendoza MD on October 20, 2017 at 19:15 Board Certified Radiologist. This report was verified electronically.
--- NOTE | 2017-10-20 19:41 | PD ---
Physical Exam Time Seen by Provider: 19:[address] Dahl left this patient with me to check her pelvic ultrasound and make a disposition, likely discharge. Data Data Last Documented VS Vital Signs Date Time Temp Pulse Resp B/P (MAP) Pulse Ox O2 Delivery O2 Flow Rate FiO2 10/20/17 17:41 98.4 74 18 136/69 (91) 100 Orders Orders Complete Blood Count With Diff (10/20/17 17:55) Comprehensive Metabolic Panel (10/20/17 17:55) Urinalysis - C+S If Indicated (10/20/17 17:55) Lipase (10/20/17 17:55) Iv Access Insert/Monitor (10/20/17 17:55) Ed Urine Pregnancytest Poc (10/20/17 17:55) Us Pelvis Comp W Doppler (10/20/17 ) Labs Laboratory Tests Test 10/20/17 18:00 10/20/17 18:18 Urine Color YELLOW Urine Turbidity CLEAR Urine pH 6.0 Urine Specific [place] 1.025 Urine Protein NEG mg/dL Urine Glucose (UA) NEG mg/dL Urine Ketones NEG mg/dL Urine Occult Blood NEG Urine Nitrite NEG Urine Bilirubin NEG Urine Leukocyte Esterase NEG Urine RBC 0-3 /hpf Urine WBC 0-2 /hpf Urine Squamous Epithelial Cells 0-5 /hpf Microscopic Urinalysis Comment CULT NOT INDICATED White Blood Count 8.4 TH/MM3 Red Blood Count 4.59 MIL/MM3 Hemoglobin 12.7 GM/DL Hematocrit 38.8 % Mean Corpuscular Volume 84.6 FL Mean Corpuscular Hemoglobin 27.8 PG Mean Corpuscular Hemoglobin Concent 32.8 % Red Cell Distribution Width 13.4 % Platelet Count 305 TH/MM3 Mean Platelet Volume 8.4 FL Neutrophils (%) (Auto) 69.7 % Lymphocytes (%) (Auto) 21.5 % Monocytes (%) (Auto) 4.6 % Eosinophils (%) (Auto) 2.7 % Basophils (%) (Auto) 1.5 % Neutrophils # (Auto) 5.9 TH/MM3 Lymphocytes # (Auto) 1.8 TH/MM3 Monocytes # (Auto) 0.4 TH/MM3 Eosinophils # (Auto) 0.2 TH/MM3 Basophils # (Auto) 0.1 TH/MM3 CBC Comment DIFF FINAL Differential Comment Blood Urea Nitrogen 8 MG/DL Creatinine 0.75 MG/DL Random Glucose 93 MG/DL Total Protein 7.9 GM/DL Albumin 3.8 GM/DL Calcium Level 8.4 MG/DL Alkaline Phosphatase 36 U/L Aspartate Amino Transf (AST/SGOT) 11 U/L Alanine Aminotransferase (ALT/SGPT) 15 U/L Total Bilirubin 0.2 MG/DL Sodium Level 141 MEQ/L Potassium Level 3.2 MEQ/L Chloride Level 107 MEQ/L Carbon Dioxide Level 25.6 MEQ/L Anion Gap 8 MEQ/L Estimat Glomerular Filtration Rate 90 ML/MIN Lipase 138 U/L [facility] Medical Record Reviewed: Yes Supervised Visit with NORRIS: No Interpretation(s) The ultrasound of the pelvis is unremarkable. The CBC is normal. The complete metabolic profile shows a potassium of 3.2, calcium 8.4 but is otherwise unremarkable. Lipase is normal. The urinalysis is normal. The urine test is negative. Differential Diagnosis Ectopic , ovarian cyst, pelvic pain unknown etiology, colitis, diverticulitis Narrative Course The CBC is completely normal and the ultrasound is completely normal. The urine is normal and the complete metabolic profile as well as lipase are unremarkable. This time the patient has pelvic pain of unknown etiology. She will need to follow-up with a lead ingot molder. She has Medicaid chair of cost and states she cannot afford the share of cost. She needs to follow up with the field case manager and get their advice on the insurance. She will be given Percocet 5 and prochlorperazine for pain and nausea. Diagnosis Primary Impression: Abdominal pain of unknown etiology Med/Other Pt SpecificInfo: Prescription(s) given Scripts Prochlorperazine Maleate (Prochlorperazine Maleate) 10 Mg Tab 10 MG PO Q6H Y for NAUSEA OR VOMITING, #30 TAB 0 Refills Prov: Davy Alicia MD 10/20/17 Oxycodone-Acetaminophen (Percocet) 5-325 mg Tab 1 TAB PO Q6H Y for PAIN, #21 TAB 0 Refills Prov: Davy Alicia MD 10/20/17 Disposition: 01 DISCHARGE HOME Condition: Stable Davy Alicia MD Oct 20, 2017 19:41
[2017-10-20] MEDS ORDERED: PERC5TAB12 PO (19:52)
[2017-10-20] MEDS ORDERED: PROC10TA PO (19:52)
[2017-10-20] MEDS ORDERED: oxyCODONE/ACETAMINOPHEN 7.5 MG/325 MG TAB PO ONE (20:00)
[2017-10-20] MEDS ORDERED: ONDANSETRON HCL 4 MG/2 ML VIAL IV PUSH ONE (20:00)
[2017-10-20 20:21] VITALS: BP 127/64
== END 2017-10-20 20:23 | disposition home or self-care (01) ==
LOC: PHED 17:32
DX: R10.30 Lower abdominal pain, unspecified (principal); Z90.79 Acquired absence of other genital organ(s)
CPT/HCPCS: 76856; 80053; 81001; 83690; 84703; 85025; 93975; 96374; 99284; J2405

== ENCOUNTER 2017-12-23 10:08 | Emergency (ER) | payer MEDICAID ==
[~2017-12-23] VITALS: Ht 152.4 cm; Wt 68.0 kg
[~2017-12-23 10:08] MED LIST changes: -OXYC1TAB63 PO; +PROC10TA PO
[2017-12-23 10:12] VITALS: BP 122/61; PULSE 80; RESP 18; TEMP 98.6; O2SAT 99
[2017-12-23] MEDS ORDERED: AZIT250T3 PO (10:25)
[2017-12-23] MEDS ORDERED: PROMSYP3 PO (10:26)
--- NOTE | 2017-12-23 10:26 | PD ---
HPI Chief Complaint: Cold / Flu Symptoms Time Seen by Provider: 10:17 Travel History International Travel<30 days: No Contact w/Intl Traveler<30days: No Traveled to known affect area: No History of Present Illness HPI 32-year-old female here with productive cough 1 week. Symptom severity is moderate. Reporting colored sputum production. No chest pain or shortness of breath. No aggravating or alleviating factors. PFSH Past Medical History ADD: Yes Anxiety: Yes Depression: Yes (PP) Cancer: No Cardiovascular Problems: No Diabetes: No Diminished Hearing: No Gastrointestinal Disorders: Yes (Gastritis ) Glaucoma: No Hepatitis: No Hiatal Hernia: Yes Hypertension: No Medical other: No Reproductive: Yes (Heavy periods ) Respiratory: No Immunizations Current: Yes Thyroid Disease: Yes (Hypo-) Tetanus Vaccination: Unknown ?: Not Menopausal: No : 2 Para: 2 Miscarriage: 0 : 0 Ovarian Cysts: Yes (Ovarian and uterine cysts ) Tubal Ligation: Yes Past Surgical History Abdominal Surgery: Yes (Laparoscopy ) Section: Yes (X's 2 ) Cholecystectomy: Yes Gynecologic Surgery: Yes (Uterine scar tissue removal ) Other Surgery: Yes Social History Alcohol Use: No Tobacco Use: No Substance Use: No Allergies-Medications (Allergen,Severity, Reaction): Coded Allergies: codeine (Unverified Allergy, Severe, Hives, 12/23/17) penicillin G (Unverified Allergy, Severe, Rash, 12/23/17) Uncoded Allergies: " all cillins" (Allergy, Mild, hives, 03/10/17) Reported Meds & Prescriptions Reported Meds & Active Scripts Active Promethazine-Dextromethorphan Liq (Dextromethorphan-Promethazine Liq) 6.25-15 Mg /5 Ml Syrp 10 Ml PO Q6HR PRN Azithromycin 250 Mg Tab 250 Mg PO DIRECTED Take 2 tabs (500 mg) on day 1 then 1 tab daily x 4 days. Review of Systems Except as stated in HPI: all other systems reviewed are Neg General / Constitutional: Positive: Fever Eyes: No: Visual changes HENT: No: Headaches Cardiovascular: No: Chest Pain or Discomfort Respiratory: Positive: Cough Gastrointestinal: No: Abdominal Pain Physical Exam Narrative GENERAL: Alert and well-appearing 32-year-old female SKIN: Warm and dry. HEAD: Normocephalic. EYES: No injection or drainage. NECK: Supple CARDIOVASCULAR: Regular rate and rhythm without murmurs, gallops, or rubs. RESPIRATORY: Breath sounds equal bilaterally. No accessory muscle use. Rhonchorous cough GASTROINTESTINAL: Abdomen soft, non-tender, nondistended. MUSCULOSKELETAL: No cyanosis, or edema. Data Data Last Documented VS Vital Signs Date Time Temp Pulse Resp B/P (MAP) Pulse Ox O2 Delivery O2 Flow Rate FiO2 12/23/17 10:12 98.6 80 18 122/61 (81) 99 MDM Medical Decision Making Medical Screen Exam Complete: Yes Emergency Medical Condition: Yes Differential Diagnosis Bronchitis, pneumonia, influenza Narrative Course 32-year-old female here with productive cough 1 week. She is well-appearing. Vital signs are stable. She will be treated with azithromycin and antitussives. Diagnosis Primary Impression: Bronchitis Referrals: Primary Care Physician Departure Forms: Tests/Procedures, Work Release Enter return to work date: December 24, 2017 Scripts Dextromethorphan-Promethazine Liq (Promethazine-Dextromethorphan Liq) 6.25-15 Mg /5 Ml Syrp 10 ML PO Q6HR Y for COUGH, #120 ML Prov: Magalie 12/23/17 Azithromycin (Azithromycin) 250 Mg Tab 250 MG PO DIRECTED for Infection, #6 TAB 0 Refills Take 2 tabs (500 mg) on day 1 then 1 tab daily x 4 days. Prov: Magalie 12/23/17 Disposition: 01 DISCHARGE HOME Condition: Stable Magalie Sun December 23, 2017 10:26
== END 2017-12-23 10:38 | disposition home or self-care (01) ==
LOC: PHEFT 10:08
DX: J40 Bronchitis, not specified as acute or chronic (principal); F41.9 Anxiety disorder, unspecified; F32.9 Major depressive disorder, single episode, unspecified; E03.9 Hypothyroidism, unspecified; F98.8 Other specified behavioral and emotional disorders with onset usually occurring in childhood and adolescence
CPT/HCPCS: 99283

== ENCOUNTER 2018-02-01 07:40 | Emergency (ER) | payer MEDICAID ==
[~2018-02-01 07:40] MED LIST changes: +AZIT250T3 PO; -PERC5TAB12 PO; -PROC10TA PO; +PROMSYP3 PO
[2018-02-01 07:42] VITALS: BP 118/65; PULSE 56; RESP 16; TEMP 98.4; O2SAT 99
[2018-02-01] MEDS ORDERED: SODIUM CHLOR 0.9% 1000 ML INJ 1,000 ML IV ONE (08:00)
[2018-02-01] MEDS ORDERED: KETOROLAC TROMETHAMINE 30 MG/ML (IVP) VIAL IV PUSH ONE (08:00)
--- NOTE | 2018-02-01 08:02 | PD ---
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 He finished. Last Thursday. Her symptoms started yesterday around 6 PM. She rates the pain as a 7-1/2 out of 10 at this time. She has had ovarian cysts in the past. She had a tubal ligation 4 years ago but in February 2017 she had a right ectopic . She has not had fever or chills. PFSH Past Medical History ADD: Yes Anxiety: Yes Depression: Yes (PP) Cancer: No Cardiovascular Problems: No Diabetes: No Diminished Hearing: No Gastrointestinal Disorders: Yes (Gastritis ) Glaucoma: No Hepatitis: No Hiatal Hernia: Yes Hypertension: No Reproductive: Yes (Heavy periods ) Respiratory: No Immunizations Current: Yes Thyroid Disease: Yes (Hypo-) ?: Not LMP: LAST WEEK Menopausal: No : 2 Para: 2 Miscarriage: 0 : 0 Ovarian Cysts: Yes (Ovarian and uterine cysts ) Tubal Ligation: Yes Past Surgical History Abdominal Surgery: Yes (Laparoscopy ) Section: Yes (X's 2 ) Cholecystectomy: Yes Gynecologic Surgery: Yes (Uterine scar tissue removal ) Other Surgery: Yes Social History Alcohol Use: No Tobacco Use: No Substance Use: No Allergies-Medications (Allergen,Severity, Reaction): Coded Allergies: codeine (Verified Allergy, Severe, Hives, 02/01/18) penicillin G (Verified Allergy, Severe, Rash, 02/01/18) Uncoded Allergies: " all cillins" (Allergy, Mild, hives, 03/10/17) Reported Meds & Prescriptions Reported Meds & Active Scripts Active Reported Levothyroxine (Levothyroxine Sodium) 75 Mcg Tab 75 Mcg PO DAILY Review of Systems Except as stated in HPI: all other systems reviewed are Neg Physical Exam Narrative GENERAL: Well-developed female SKIN: Focused skin assessment warm/dry. HEAD: Atraumatic. Normocephalic. EYES: Pupils equal and round. No scleral icterus. No injection or drainage. ENT: No nasal bleeding or discharge. Mucous membranes pink and moist. NECK: Trachea midline. No JVD. CARDIOVASCULAR: Regular rate and rhythm. No murmur appreciated. RESPIRATORY: No accessory muscle use. Clear to auscultation. Breath sounds equal bilaterally. GASTROINTESTINAL: Abdomen soft, non-tender, nondistended. Hepatic and splenic margins not palpable. 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 There is no pain with movement of the cervix. There is right adnexal tenderness MUSCULOSKELETAL: No obvious deformities. No clubbing. No cyanosis. No edema. NEUROLOGICAL: Awake and alert. No obvious cranial nerve deficits. Motor grossly within normal limits. Normal speech. PSYCHIATRIC: Appropriate mood and affect; insight and judgment normal. Data Data Last Documented VS Vital Signs Date Time Temp Pulse Resp B/P (MAP) Pulse Ox O2 Delivery O2 Flow Rate FiO2 02/01/18 08:55 16 02/01/18 08:47 58 100/62 (75) 98 Room Air 02/01/18 07:42 98.4 Orders Orders Complete Blood Count With Diff (02/01/18 07:53) Urinalysis - C+S If Indicated (02/01/18 07:53) Beta Hcg (Quant/Titer) (02/01/18 07:53) Sodium Chlor 0.9% 1000 Ml Inj (Ns 1000 M (02/01/18 08:00) Ketorolac Inj (Toradol Inj) (02/01/18 08:00) Ondansetron Inj (Zofran Inj) (02/01/18 08:45) Morphine Inj (Morphine Inj) (02/01/18 08:45) Labs Laboratory Tests Test 02/01/18 07:40 02/01/18 08:05 Urine Color YELLOW Urine Turbidity CLEAR Urine pH 6.0 Urine Specific [place] 1.025 Urine Protein NEG mg/dL Urine Glucose (UA) NEG mg/dL Urine Ketones NEG mg/dL Urine Occult Blood LARGE Urine Nitrite NEG Urine Bilirubin NEGATIVE Urine Leukocyte Esterase NEGATIVE Urine RBC 0-3 /hpf Urine WBC 0-2 /hpf Urine Squamous Epithelial Cells 0-5 /hpf Microscopic Urinalysis Comment CULT NOT INDICATED White Blood Count 6.7 TH/MM3 Red Blood Count 4.39 MIL/MM3 Hemoglobin 12.8 GM/DL Hematocrit 36.3 % Mean Corpuscular Volume 82.7 FL Mean Corpuscular Hemoglobin 29.0 PG Mean Corpuscular Hemoglobin Concent 35.1 % Red Cell Distribution Width 14.3 % Platelet Count 249 TH/MM3 Mean Platelet Volume 8.6 FL Neutrophils (%) (Auto) 50.9 % Lymphocytes (%) (Auto) 26.6 % Monocytes (%) (Auto) 5.9 % Eosinophils (%) (Auto) 15.6 % Basophils (%) (Auto) 1.0 % Neutrophils # (Auto) 3.4 TH/MM3 Lymphocytes # (Auto) 1.8 TH/MM3 Monocytes # (Auto) 0.4 TH/MM3 Eosinophils # (Auto) 1.0 TH/MM3 Basophils # (Auto) 0.1 TH/MM3 CBC Comment DIFF FINAL Differential Comment Human Chorionic Gonadotropin, Quant LESS THAN 1 MIU/ML MDM Medical Decision Making Medical Screen Exam Complete: Yes Emergency Medical Condition: Yes Medical Record Reviewed: Yes Differential Diagnosis Differential includes ovarian cyst, ectopic Narrative Course Beta is negative. CBC is normal with the exception of 15% eosinophils. I have pointed this out to the patient and recommended follow-up but I think this is nothing to do with her symptoms today. Review of chart shows that her eosinophils are usually normal other was 10% at one time a few months ago. She did not get relief with Toradol and was given morphine. She will be released with prescription for Lortab Diagnosis Primary Impression: Right ovarian cyst Scripts Hydrocodone-Acetaminophen ([place]) 7.5-325 mg Tab 1 TAB PO Q4H Y for PAIN, #12 TAB 0 Refills Prov: Trevor Esparza MD 02/01/18 Disposition: 01 DISCHARGE HOME Condition: Stable Trevor Esparza MD Feb 01, 2018 08:02
[2018-02-01 08:27] LABS: BILIRUBIN, URINE NEGATIVE (NEG); BLOOD, URINE LARGE (NEG); GLUCOSE,URINE NEG (NEG); KETONE, URINE NEG (NEG); NITRITE,URINE NEG (NEG); URINE COLOR YELLOW (YELLW/STRAW); URINE LEUKOCYTE ESTERASE NEGATIVE (NEG)
[2018-02-01] MEDS ORDERED: LEVO75TA3 PO (08:27)
[2018-02-01 08:28] LABS: WBC, URINE 0-2 /hpf (0-5)
[2018-02-01 08:29] LABS: RBC, URINE 0-3 /hpf (0-3); SQUAMOUS EPITHELIAL CELL URINE 0-5 /hpf (0-5)
[2018-02-01] MEDS ORDERED: MORPHINE SULFATE 8 MG/ML INJ IV PUSH ONE (08:45)
[2018-02-01] MEDS ORDERED: ONDANSETRON HCL 4 MG/2 ML VIAL IV PUSH ONE (08:45)
[2018-02-01 08:47] VITALS: BP 100/62; PULSE 58; RESP 16; O2SAT 98
[2018-02-01 08:50] LABS: AUTOMATED NEUTROPHIL # 3.4 TH/MM3 (1.8-7.7); BASOPHIL # 0.1 TH/MM3 (0-0.2); EOSINOPHIL % 15.6 % (0.0-4.0); HEMATOCRIT 36.3 % (35.0-46.0); HEMOGLOBIN 12.8 GM/DL (11.6-15.3); LYMPH % 26.6 % (9.0-44.0); LYMPHOCYTE # 1.8 TH/MM3 (1.0-4.8); MEAN CELL VOLUME 82.7 FL (80.0-100.0); MEAN CORPUSCULAR HGB CONC 35.1 % (32.0-36.0); MEAN PLATELET VOLUME 8.6 FL (7.0-11.0); MONO % 5.9 % (0.0-8.0); MONOCYTE # 0.4 TH/MM3 (0-0.9); NEUT % 50.9 % (16.0-70.0); PLATELET COUNT 249 TH/MM3 (150-450); RED BLOOD COUNT 4.39 MIL/MM3 (4.00-5.30); RED CELL DISTRIBUTION WIDTH 14.3 % (11.6-17.2); WHITE BLOOD COUNT 6.7 TH/MM3 (4.0-11.0)
[2018-02-01 09:17] VITALS: BP 97/60; PULSE 58; RESP 18; O2SAT 98
[2018-02-01] MEDS ORDERED: HYDR-3288 PO (09:18)
== END 2018-02-01 09:29 | disposition home or self-care (01) ==
LOC: PHED 07:40
DX: N83.201 Unspecified ovarian cyst, right side (principal); F98.8 Other specified behavioral and emotional disorders with onset usually occurring in childhood and adolescence; F41.9 Anxiety disorder, unspecified; F32.9 Major depressive disorder, single episode, unspecified; E03.9 Hypothyroidism, unspecified; Z88.5 Allergy status to narcotic agent; Z88.0 Allergy status to penicillin; Z79.899 Other long term (current) drug therapy
CPT/HCPCS: 81001; 84702; 85025; 96361; 96374; 96375; 99283; J1885; J2270; J2405; J7030